=== PATIENT | male | born 1980 | race Caucasian/White ===

== ENCOUNTER 2017-01-14 09:51 | Emergency (ER) | payer MEDICAID ==
[2017-01-14] MEDS ORDERED: TETANUS/DIPHTHERIA/PERTUSSIS 0.5 ML SYRINGE IM ONE ×2 (11:10→11:24)
--- NOTE | 2017-01-14 11:13 | ED Physician Documentation ---
PD HPI LOWER EXT INJURY - Stated complaint Stated Complaint: R FOOT LAC - Chief complaint Chief Complaint: Ext Problem - History obtained from History obtained from: Patient - History of Present Illness PD HPI LOW EXT INJURY LOCATION: Right, Foot Type of injury: Other (unknown) Where injury occurred: Home Timing - onset: Last night Timing - duration: Hours Timing - details: Abrupt onset, Still present Improved by: Rest, Immobilization Worsened by: Moving, Palpating Associated symptoms: No: Weakness, Numbness, Tingling, Swelling Contributing factors: No: Anticoagulated Similar symptoms before: Has not had sx before Recently seen: Not recently seen - Additional information Additional information: 36-year-old male injured his right foot last night is uncertain exactly how this happened but he does have a laceration and the skin skiv. He does not know when he had his last tetanus. Review of Systems Constitutional: denies: Fever Respiratory: denies: Cough GI: denies: Vomiting Skin: reports: Laceration (s). denies: Rash Musculoskeletal: reports: Extremity pain. denies: Neck pain, Back pain PD PAST MEDICAL HISTORY - Past Medical History Past Medical History: Yes Neuro: Headache/migraine - Present Medications Home Medications: Ambulatory Orders Medication Instructions Recorded Confirmed Gabapentin 600 mg PO TID 01/14/17 01/14/17 - Allergies Allergies/Adverse Reactions: Allergies Allergy/AdvReac Type Severity Reaction Status Date / Time No Known Drug Allergies Allergy Verified 01/14/17 10:00 - Social History Does the pt smoke?: Yes Smoking Status: Current every day smoker PD ED PE NORMAL - Vitals Vital signs reviewed: Yes (hypertensive ) - General General: No acute distress, Well developed/nourished - HEENT HEENT: Atraumatic, PERRL - Respiratory Respiratory: No respiratory distress - Derm Derm: Normal color, Warm and dry, No rash - Extremities Extremities: No deformity, No edema, Other (over the distal right 1st mt medially there is a superficial laceration and a skin skiv. The skiv is aobut 1.5cm X .5cm and the superficial laceration is about 1.5cm. ) - Neuro Neuro: No motor deficit, No sensory deficit - Psych Psych: Normal mood, Normal affect Results - Vitals Vitals: Vital Signs - 24 hr 01/14/17 09:57 Temperature 36.5 C Heart Rate 99 Respiratory 18 Rate Blood Pressure 118/82 H O2 Saturation 95 Oxygen O2 Source Room air PD MEDICAL DECISION MAKING - ED course Complexity details: considered differential, d/w patient ED course: 36-year-old male with a laceration and skin is given to his right foot has local wound care performed cleaning the wound and dressing it and he is given a tetanus booster. Departure - Departure Disposition: 01 Home, Self Care Clinical Impression: Avulsion of skin of foot Qualifiers: Encounter type: initial encounter Laterality: right Qualified Code(s): S91.301A - Unspecified open wound, right foot, initial encounter Superficial laceration of foot Qualifiers: Encounter type: initial encounter Laterality: right Qualified Code(s): S91.311A - Laceration without foreign body, right foot, initial encounter Condition: Stable Instructions: ED Laceration Foot, ED Avulsion Dermal Follow-Up: SAYRA HARMON [Primary Care Provider] -
[2017-01-14] MEDS ORDERED: LIDOCAINE-EPINEPH-TETRACAINE 3 ML SYRINGE TOP STA (11:17)
[2017-01-14] MEDS ORDERED: LIDOCAINE-EPINEPH-TETRACAINE 3 ML SYRINGE TOP ONE (11:23)
[2017-01-14 12:30] VITALS: BP 123/77
== END 2017-01-14 12:29 | disposition home or self-care (01) ==
LOC: ED 09:51
DX: S91.301A Unspecified open wound, right foot, initial encounter (principal); S91.311A Laceration without foreign body, right foot, initial encounter; X58.XXXA Exposure to other specified factors, initial encounter; Y92.009 Unspecified place in unspecified non-institutional (private) residence as the place of occurrence of the external cause; Z23 Encounter for immunization; F17.200 Nicotine dependence, unspecified, uncomplicated
CPT/HCPCS: 90471; 99283

== ENCOUNTER 2018-02-05 00:38 | Outpatient (CLI) | payer OTHER, MEDICAID | END 2018-02-05 00:39 | disposition critical access hospital (66) | LOC: EMS 00:38 | PROVIDERS: ATTEND Surgery | DX: S09.90XA Unspecified injury of head, initial encounter (principal); R45.1 Restlessness and agitation; R41.82 Altered mental status, unspecified; V48.5XXA Car driver injured in noncollision transport accident in traffic accident, initial encounter; Y92.410 Unspecified street and highway as the place of occurrence of the external cause | CPT/HCPCS: A0425; A0429; A0999 ==

== ENCOUNTER 2018-02-05 01:02 | Emergency (ER) | payer OTHER, MEDICAID ==
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
[2018-02-05 03:16] VITALS: BP 159/79
== END 2018-02-05 03:12 | disposition home or self-care (01) ==
LOC: EDUNIT# → ED 01:02
DX: S20.219A Contusion of unspecified front wall of thorax, initial encounter (principal); S06.0X0A Concussion without loss of consciousness, initial encounter; S00.83XA Contusion of other part of head, initial encounter; S00.03XA Contusion of scalp, initial encounter; F10.920 Alcohol use, unspecified with intoxication, uncomplicated; F17.200 Nicotine dependence, unspecified, uncomplicated; V48.5XXA Car driver injured in noncollision transport accident in traffic accident, initial encounter
CPT/HCPCS: 70450; 71045; 99283; 99285

== ENCOUNTER 2018-02-05 02:28 | Outpatient (CLI) | payer OTHER, MEDICAID | END 2018-02-05 02:29 | disposition home or self-care (01) | LOC: LAB 02:28 | PROVIDERS: ATTEND Pathology Blood Banking & Transfusion Medicine | DX: Z01.89 Encounter for other specified special examinations (principal) | CPT/HCPCS: 36415 ==